=== PATIENT | male | born 2000 | race Caucasian/White ===

== ENCOUNTER 2020-09-10 14:56 | Emergency (ER) | payer MEDICAID ==
[2020-09-10] MEDS ORDERED: Lidocaine 1% 20 ML MDV INJECT ONE (15:10)
[2020-09-10] MEDS ORDERED: Lidocaine 1% 10 ML MDV INJECT ONE (15:17)
--- NOTE | 2020-09-10 16:36 | EDM.PDOC ---
ED HPI GENERAL MEDICAL PROBLEM - General Chief Complaint: Laceration Stated Complaint: [facility] Time Seen by Provider: 09/10/20 15:01 Source of Information: Reports: Patient, EMS History Limitations: Reports: No Limitations - History of Present Illness INITIAL COMMENTS - FREE TEXT/NARRATIVE: The patient presents with bilateral hand lacerations. He was working at [employer] and he was washing a wine glass and the wine glass shattered and cut both hands. He is right handed and he feels his tetanus is up to date. Onset: Sudden Duration: Minutes: Location: Reports: Upper Extremity, Left, Upper Extremity, Right Quality: Reports: Sharp Severity: Moderate Improves with: Reports: None Worsens with: Reports: None Associated Symptoms: Reports: No Other Symptoms Bilateral Hand Pain Score (Numeric/FACES): 5 - Related Data Allergies Allergy/AdvReac Type Severity Reaction Status Date / Time No Known Allergies Allergy Verified 09/10/20 15:04 Home Meds: Home Meds . [No Known Home Meds] 09/10/20 [History] Past Medical History - Past Health History Medical/Surgical History: Denies Medical/Surgical History Psychiatric History: Reports: Depression - Past Surgical History Dermatological Surgical History: Reports: Skin Biopsy ED ROS GENERAL - Review of Systems Review Of Systems: See Below Constitutional: Reports: No Symptoms HEENT: Reports: No Symptoms Respiratory: Reports: No Symptoms Cardiovascular: Reports: No Symptoms Endocrine: Reports: No Symptoms GI/Abdominal: Reports: No Symptoms : Reports: No Symptoms Musculoskeletal: Reports: Other (lacerations to both hands) ED EXAM, SKIN/RASH Exam: See Below Exam Limited By: No Limitations General Appearance: Alert, No Apparent Distress Ears: Normal External Exam Nose: Normal Inspection Head: Atraumatic, Normocephalic Neck: Normal Inspection Respiratory/Chest: No Respiratory Distress Extremities: Other (2.5cm eliptical laceration to the left 4th finger. 4cm laceration to the base of the right thumb that is eliptical and a 1cm eliptical laceration distal to that.) ED SKIN PROCEDURES - Laceration/Wound Repair Left Digit - 4th (Ring) Appearance: Subcutaneous, Irregular Distal NVT: Neuro & Vascular Intact, No Tendon Injury Anesthetic Type: Local Local Anesthesia - Lidocaine (Xylocaine): 1% Plain Skin Prep: Saline Exploration/Debridement/Repair: Wound Explored, In a Bloodless Field, Explored to Base Closed with: Sutures Lac/Wound length In cm: 2.5 Suture Size: 4-0 # of Sutures: 3 Suture Type: Nylon, Interrupted, Simple Complications: No Course - Vital Signs Last Recorded V/S: Last Vital Signs Temp 97.6 F 09/10/20 14:58 Pulse 89 09/10/20 14:58 Resp 16 09/10/20 14:58 BP 125/85 09/10/20 14:58 Pulse Ox 100 09/10/20 14:58 - Orders/Labs/Meds Meds: Medications Discontinued Medications Generic Name Dose Route Start Last Admin Trade Name Parminder PRN Reason Stop Dose Admin Lidocaine HCl 20 ml 09/10/20 15:10 09/10/20 15:21 Xylocaine 1% INJECT 09/10/20 15:11 Not Given ONETIME ONE Lidocaine HCl 20 ml 09/10/20 15:17 09/10/20 15:20 Xylocaine 1% INJECT 09/10/20 15:18 20 ml ONETIME ONE Administration - Re-Assessments/Exams Free Text/Narrative Re-Assessment/Exam: 09/10/20 16:37 I sutured lacerations on both hands and there was a 1cm laceration distal to the laceration on the thumb and I cleaned it with saline and put adhesive on it. I will discharge him home. Departure - Departure Time of Disposition: 16:40 Disposition: Home, Self-Care 01 Condition: Good Clinical Impression: Laceration of left ring finger Qualifiers: Encounter type: initial encounter Damage to nail status: without damage Foreign body presence: without foreign body Qualified Code(s): S61.215A - Laceration without foreign body of left ring finger without damage to nail, initial encounter Laceration of right hand Qualifiers: Encounter type: initial encounter Foreign body presence: with foreign body Qualified Code(s): S61.421A - Laceration with foreign body of right hand, initial encounter - Discharge Information *PRESCRIPTION DRUG MONITORING PROGRAM REVIEWED*: Not Applicable *COPY OF PRESCRIPTION DRUG MONITORING REPORT IN PATIENT FRIDA: Not Applicable Referrals: PCP,None [Primary Care Provider] - Adriana Figueredo NP [Nurse Practitioner] - Forms: ED Department Discharge Additional Instructions: Soak your hands in warm soapy water and apply antibiotic ointment after. Have the sutures removed in 1 week. Look for any signs of infection such as redness, swelling, pain or discharge. If you see any of these signs please return or see your doctor. You may need oral antibiotics. Sepsis Event Note (ED) - Evaluation Sepsis Screening Result: No Definite Risk - Focused Exam Vital Signs: Vital Signs Temp Pulse Resp BP Pulse Ox 09/10/20 14:58 97.6 F 89 16 125/85 100 ED LACERATION PROCEDURES - Laceration/Wound Repair Left Digit - 4th (Ring) Lac/wound length in cm: 4 Appearance: Subcutaneous, Irregular Distal NVT: Neuro & Vascular Intact, No Tendon Injury Anesthetic Type: Local Local Anesthesia - Lidocaine (Xylocaine): 1% Plain Skin Prep: Saline Exploration/Debridement/Repair: Wound Explored, In a Bloodless Field, Explored to Base, Foreign Material Removed (glass) Closed with: Sutures Suture Size: 4-0 # of Sutures: 4 Suture Type: Nylon, Interrupted, Simple Tetanus Status Addressed: Yes Complications: No
== END 2020-09-10 17:10 | disposition home or self-care (01) ==
LOC: JD.ED 14:56
DX: S61.421A Laceration with foreign body of right hand, initial encounter (principal); S61.215A Laceration without foreign body of left ring finger without damage to nail, initial encounter; W25.XXXA Contact with sharp glass, initial encounter
CPT/HCPCS: 12001; 12042; 99283; J2001; 12002; 99282

== ENCOUNTER 2023-08-19 18:13 | Emergency (ER) | payer MEDICAID ==
[2023-08-19] MEDS ORDERED: Ibuprofen 600 MG Tab PO ONE (18:27)
== END 2023-08-19 20:10 | disposition home or self-care (01) ==
LOC: JD.ED 18:13
DX: S20.212A Contusion of left front wall of thorax, initial encounter (principal); X58.XXXA Exposure to other specified factors, initial encounter
CPT/HCPCS: 71111; 99283; A9270